=== PATIENT | male | born 1995 | race Caucasian/White ===

== ENCOUNTER 2016-11-11 16:46 | Emergency (ER) | payer SELFPAY ==
[~2016-11-11] VITALS: Ht 180.3 cm; Wt 70.3 kg
== END 2016-11-11 17:02 | disposition home or self-care (01) ==
LOC: ED 16:46
DX: Z00.8 Encounter for other general examination (principal)

== ENCOUNTER 2017-02-09 14:36 | Emergency (ER) | payer SELFPAY ==
[~2017-02-09] VITALS: Ht 180.3 cm; Wt 72.6 kg
== END 2017-02-09 15:04 | disposition home or self-care (01) ==
LOC: ED 14:36
DX: Z00.8 Encounter for other general examination (principal)

== ENCOUNTER 2017-03-01 02:47 | Emergency (ER) | payer SELFPAY ==
[~2017-03-01] VITALS: Ht 180.3 cm; Wt 70.3 kg
[2017-03-01] MEDS ORDERED: CYCLOBENZAPRINE10 MG PO (04:07)
[2017-03-01] MEDS ORDERED: DICLOFENAC SODI75 MG PO (04:07)
== END 2017-03-01 04:25 | disposition home or self-care (01) ==
LOC: ED 02:47
DX: S30.0XXA Contusion of lower back and pelvis, initial encounter (principal); F17.200 Nicotine dependence, unspecified, uncomplicated; W17.2XXA Fall into hole, initial encounter
CPT/HCPCS: 71020; 72080; 99283

== ENCOUNTER 2017-06-05 21:33 | Emergency (ER) | payer MEDICAID ==
[~2017-06-05] VITALS: Ht 180.3 cm; Wt 70.3 kg
[~2017-06-05 21:33] MED LIST: CYCLOBENZAPRINE10 MG PO; DICLOFENAC SODI75 MG PO
[2017-06-05] MEDS ORDERED: TAMIFLU75 MG PO (22:17)
== END 2017-06-05 22:28 | disposition home or self-care (01) ==
LOC: ED 21:33
DX: J11.1 Influenza due to unidentified influenza virus with other respiratory manifestations (principal); F17.200 Nicotine dependence, unspecified, uncomplicated
CPT/HCPCS: 87502; 99283

== ENCOUNTER 2017-10-19 02:58 | Emergency (ER) | payer BC ==
[~2017-10-19] VITALS: Ht 180.3 cm; Wt 70.3 kg
[~2017-10-19 02:58] MED LIST changes: +TAMIFLU75 MG PO
[2017-10-19] MEDS ORDERED: TRAMADOL HCL50 MG PO (05:24)
== END 2017-10-19 06:28 | disposition home or self-care (01) ==
LOC: ED 02:58
DX: S40.012A Contusion of left shoulder, initial encounter (principal); S70.12XA Contusion of left thigh, initial encounter; S00.33XA Contusion of nose, initial encounter; V47.6XXA Car passenger injured in collision with fixed or stationary object in traffic accident, initial encounter; F17.200 Nicotine dependence, unspecified, uncomplicated; Z79.899 Other long term (current) drug therapy
CPT/HCPCS: 70450; 70486; 71260; 72125; 73030; 73552; 74177; 80053; 82150; 82550; 83690; 85025; 86850; 86900; 86901; 99284; G0480; Q9967

== ENCOUNTER 2018-05-20 03:11 | Emergency (ER) | payer BC ==
[~2018-05-20] VITALS: Ht 180.3 cm; Wt 70.3 kg
[~2018-05-20 03:11] MED LIST changes: +TRAMADOL HCL50 MG PO
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
[2018-05-20] MEDS ORDERED: NORCO 5-325 TA1 EACH PO (06:05)
== END 2018-05-20 06:27 | disposition home or self-care (01) ==
LOC: ED 03:11
PROC: 0CQ0XZZ Repair Upper Lip, External Approach (ICD-10-PCS; principal; 2018-05-20)
DX: S02.31XA Fracture of orbital floor, right side, initial encounter for closed fracture (principal); S01.511A Laceration without foreign body of lip, initial encounter; S10.93XA Contusion of unspecified part of neck, initial encounter; F17.200 Nicotine dependence, unspecified, uncomplicated; Y04.8XXA Assault by other bodily force, initial encounter
CPT/HCPCS: 40650; 70450; 70486; 99283-25

== ENCOUNTER 2019-11-09 16:49 | Emergency (ER) | payer OTHER, BC ==
[~2019-11-09] VITALS: Ht 180.3 cm; Wt 70.3 kg
[~2019-11-09 16:49] MED LIST changes: +NORCO 5-325 TA1 EACH PO
--- OUTSIDE RECORDS SUMMARY | 2019-11-09 16:52 | XMS ---
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 [facility] has no Care Guidelines for this patient. Care History Medical/Surgical 05/22/2018 [facility] - [facility] CALLED PATIENT ABOUT ESTABLISHING CARE WITH A PCP. - PATIENT CONTACT NUMBER IS NOT VALID- NUMBER BELONGS TO SOMEONE ELSE. - NO PCP LETTER SENT TO PATIENT. E.D. VISIT COUNT (12 MO.) 1 [facility] TOTAL 1 NOTE: Visits indicate total known visits. ED/UCC VISIT TRACKING (12 MO.) 11/09/2019 16:[address] [facility] [place] TYPE: Emergency COMPLAINT: - NECK/ BACK PAIN INJ INPATIENT VISIT TRACKING (12 MO.) No inpatient visits to display in this time frame [email or web address]
[2019-11-09] MEDS ORDERED: LIDODERM1 EACH TP (18:02)
== END 2019-11-09 18:25 | disposition home or self-care (01) ==
LOC: ED 16:49
DX: M54.2 Cervicalgia (principal); F17.200 Nicotine dependence, unspecified, uncomplicated
CPT/HCPCS: 99283; A9270

== ENCOUNTER 2020-04-12 12:40 | Emergency (ER) | payer OTHER ==
[~2020-04-12 12:40] MED LIST changes: +LIDODERM1 EACH TP
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
== END 2020-04-12 13:16 | disposition left against medical advice (07) ==
LOC: ED 12:40
DX: Z53.21 Procedure and treatment not carried out due to patient leaving prior to being seen by health care provider (principal)

== ENCOUNTER 2021-08-21 23:27 | Emergency (ER) | payer SELFPAY ==
[~2021-08-21] VITALS: Ht 180.3 cm; Wt 77.1 kg
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
== END 2021-08-22 03:17 | disposition home or self-care (01) ==
LOC: ED 23:27
DX: T40.411A Poisoning by fentanyl or fentanyl analogs, accidental (unintentional), initial encounter (principal); F17.200 Nicotine dependence, unspecified, uncomplicated
CPT/HCPCS: 80053; 82553; 85025; 99284